=== PATIENT | female | born 1970 | race Two or more races ===

== ENCOUNTER → 2024-07-11 15:27 | Outpatient (REF) | payer OTHER, SELFPAY | LOC: HWWDC 15:27 | PROVIDERS: ATTENDING PHYSICIAN Nurse Practitioner Adult Health | DX: Z12.31 Encounter for screening mammogram for malignant neoplasm of breast (principal) | CPT/HCPCS: 77063; 77067 ==

== ENCOUNTER 2025-05-05 06:16 | Day surgery (SDC) | payer OTHER, SELFPAY | END 2025-05-05 08:40 | disposition home or self-care (01) | LOC: GI 06:16 | PROVIDERS: ATTENDING PHYSICIAN Internal Medicine | DX: Z12.11 Encounter for screening for malignant neoplasm of colon (principal); K57.30 Diverticulosis of large intestine without perforation or abscess without bleeding | CPT/HCPCS: G0121 ==

== ENCOUNTER → 2025-06-03 11:17 | Outpatient (REF) | payer OTHER, SELFPAY ==
[2025-06-03 11:41] LABS: Hematocrit 40.2 % (37.0-47.0); Hemoglobin 13.8 g/dL (12.0-16.0); Mean Corp Hgb Conc. 34.3 g/dL (33.0-37.0); Mean Corpuscular Volume 96.6 fL (81.0-99.0); Nucleated Red Blood Cells % 0 %; Platelet Count 282 10^3/uL (130-400); Red Cell Dist. Width 12.0 % (11.5-14.5)
[2025-06-03 12:01] LABS: ALT (SGPT) 28 U/L (0-35); AST (SGOT) 29 U/L (14-36); Albumin 4.8 g/dl (3.5-5.0); Alkaline Phosphatase 50 U/L (38-126); Blood Urea Nitrogen 19 mg/dl (7-17); Calcium 9.3 mg/dl (8.4-10.2); Carbon Dioxide 26 mmol/L (22-30); Chloride 103 mmol/L (98-107); Glucose 101 mg/dl (70-99); Potassium 4.6 mmol/L (3.5-5.1); Sodium 136 mmol/L (135-145); Total Protein 8.3 g/dl (6.3-8.2); eGFR > 60.00
== END ==
LOC: RAD 11:17
PROVIDERS: ATTENDING PHYSICIAN Nurse Practitioner Adult Health
DX: R10.31 Right lower quadrant pain (principal); K92.1 Melena; R19.5 Other fecal abnormalities
CPT/HCPCS: 36415; 74177; 80053; 85025; Q9967

== ENCOUNTER → 2025-08-18 08:16 | Outpatient (REF) | payer OTHER, SELFPAY | LOC: HWRAD 08:16 | PROVIDERS: ATTENDING PHYSICIAN Advanced Practice Midwife; FAMILY PHYSICIAN Nurse Practitioner Adult Health | DX: N95.0 Postmenopausal bleeding (principal) | CPT/HCPCS: 76830; 76856 ==